=== PATIENT | male | born 1970 | race Caucasian/White ===

== ENCOUNTER 2018-02-21 19:55 | Inpatient (IN) | payer OTHER ==
[~2018-02-21] VITALS: Ht 190.5 cm; Wt 93.4 kg
[2018-02-21] MEDS ORDERED: HYDROCODONE/APAP 5MG-325MG TAB PO PRN (21:30)
[2018-02-21 21:40] VITALS: BP 116/85
[2018-02-21 22:14] LABS: ALANINE AMINOTRANSFERASE 32 IU/L (0-55); ALBUMIN 3.1 g/dL (3.5-5.0); ALBUMIN/GLOBULIN RATIO 1.2 (0.8-2.0); ALKALINE PHOSPHATASE 47 IU/L (40-150); ANION GAP 10.4 mmol/L (8-16); BLOOD UREA NITROGEN 10 mg/dL (7-26); BUN/CREATININE RATIO 13 (6-25); CALCIUM 7.6 mg/dL (8.4-10.2); CARBON DIOXIDE 19 mmol/L (22-29); CHLORIDE 115 mmol/L (98-107); CREATININE, SERUM 0.77 mg/dL (0.72-1.25); EST GLOMERULAR FILTRATION RATE > 60 ML/MIN (60-); GLUCOSE 90 mg/dL (74-118); POTASSIUM 3.4 mmol/L (3.5-5.1); SODIUM 141 mmol/L (136-145)
[2018-02-21] MEDS: CEFTRIAXONE SOD 1 GM VIAL IV SCH (22:14)
[2018-02-21] MEDS: SODIUM CHLORIDE 0.9% 1000ML 1,000 ML IV SCH (22:20)
[2018-02-21 22:38] VITALS: BP 116/85
[2018-02-21] MEDS ORDERED: POTASSIUM CHLORIDE 20 MEQ TAB CR PO SCH (22:45)
[2018-02-21 23:50] VITALS: BP 116/85
[2018-02-22] VITALS (8 sets, daily range): BP systolic 98–127; BP diastolic 63–80
--- NOTE | 2018-02-22 01:41 | Diagnostic Imaging Report ---
EXAM: CT Abdomen and Pelvis WITH contrast INDICATION: Evaluation for abdominal tumor COMPARISON: None. TECHNIQUE: Abdomen and pelvis were scanned utilizing a multidetector helical scanner from the lung base to the pubic symphysis after administration of IV contrast. Coronal and sagittal reformations were obtained. Routine protocol was performed. Scan was performed when during portal venous phase. IV CONTRAST: 100 mL of Isovue-370 ORAL CONTRAST: Water RADIATION DOSE: Total DLP: 462.68 mGy*cm Estimated effective dose: (DLP x 0.015 x size factor) mSv COMPLICATIONS: None FINDINGS: LINES and TUBES: None. LOWER THORAX: Trace of bilateral pleural effusions. Subtle circumferential thickening of the distal esophagus. HEPATOBILIARY: 1 cm hypodensity in series 2, image 28 involving the segment 6 of the liver. No biliary ductal dilation. GALLBLADDER: No radio-opaque stones or sludge. No wall thickening. SPLEEN: Mild splenomegaly. PANCREAS: No focal masses or ductal dilatation. ADRENALS: No adrenal nodules KIDNEYS/URETERS: Kidneys enhance symmetrically. No hydronephrosis. No cystic or solid mass lesions. No stones. GI TRACT: No abnormal distention, wall thickening, or evidence of bowel obstruction. There are post surgical changes of appendectomy. PELVIC ORGANS/BLADDER: Unremarkable. LYMPH NODES: No lymphadenopathy. VESSELS: Unremarkable. PERITONEUM / RETROPERITONEUM: No free air or fluid. BONES: Unremarkable. SOFT TISSUES: Unremarkable. IMPRESSION: 1. No evidence of acute intra-abdominal or pelvic abnormality. 2. Mild splenomegaly. 3. Trace of bilateral pleural effusions. 4. Indeterminate hypodensity in segment 6 of the liver. Follow-up with MRI of the liver in 6-12 weeks is recommended. 5. Circumferential thickening of the distal esophagus is nonspecific. Signed by: Dr. Onesimo Coelho M.D. on 02/22/2018 1:38 AM
[2018-02-22] MEDS ORDERED: IOPAMIDOL 370 MG/ML 200 ML INFUS..BTL INJ ONE (03:30)
[2018-02-22] MEDS ORDERED: SODIUM CHLORIDE 0.9% 50ML 50 ML ONE (03:30)
[2018-02-22 05:45] LABS: BASOPHILS % 0.5 % (0.0-1.0); EOSINOPHILS # (AUTO) 0.1 (0.0-0.4); EOSINOPHILS % 2.5 % (0.0-6.0); HEMATOCRIT 32.2 % (38.2-49.6); HEMOGLOBIN 11.5 g/dL (14.0-18.0); LYMPHOCYTES # (AUTO) 2.3 (1.0-3.2); LYMPHOCYTES % 59.4 % (18.0-39.1); MEAN CORPUSCULAR HEMOGLOBIN 30.2 pg (28-32); MEAN CORPUSCULAR HGB CONC 35.7 g/dL (31-35); MEAN CORPUSCULAR VOLUME 84.5 fL (81-99); MONOCYTES # (AUTO) 0.4 (0.2-0.8); MONOCYTES % 10.7 % (4.4-11.3); NEUTROPHILS # (AUTO) 1.1 (2.1-6.9); NEUTROPHILS % 26.9 % (38.7-80.0); PLATELET COUNT 217 x10e3/uL (140-360); RED BLOOD COUNT 3.81 x10e6/uL (4.3-5.7)
[2018-02-22 06:16] LABS: ALANINE AMINOTRANSFERASE 35 IU/L (0-55); ALBUMIN 3.2 g/dL (3.5-5.0); ALBUMIN/GLOBULIN RATIO 1.2 (0.8-2.0); ALKALINE PHOSPHATASE 50 IU/L (40-150); ANION GAP 9.8 mmol/L (8-16); BLOOD UREA NITROGEN 10 mg/dL (7-26); BUN/CREATININE RATIO 12 (6-25); CALCIUM 8.4 mg/dL (8.4-10.2); CARBON DIOXIDE 25 mmol/L (22-29); CHLORIDE 109 mmol/L (98-107); CREATININE, SERUM 0.84 mg/dL (0.72-1.25); EST GLOMERULAR FILTRATION RATE > 60 ML/MIN (60-); GLUCOSE 100 mg/dL (74-118); POTASSIUM 3.8 mmol/L (3.5-5.1); SODIUM 140 mmol/L (136-145)
[2018-02-22] MEDS: SODIUM CHLORIDE 0.9% 1000ML 1,000 ML IV SCH ×2 (08:28→18:23)
[2018-02-22] MEDS ORDERED: POTASSIUM CHLORIDE 20 MEQ TAB CR PO SCH ×2 (09:00)
--- NOTE | 2018-02-22 12:58 | History and Physical ---
This dictation is done on behalf of Dr. Kole Harkins of infectious disease. Mr. Foley is a pleasant, 47-year-old gentleman who has been known to infectious disease for quite some time. He has a 27-year history of HIV, and he claims he has never been on any HIV medication. He has a history of I and D of a buttock abscess about 4 years ago, which was treated with IV antibiotic through Dr. Kole Harkins's office. He reports that he has been having fever with a maximum of 103 for the past month off and on. He had some diarrhea, which has resolved. He had some dark urine as dark as coffee color, which has improved. He only peed maybe about 7 to 10 ounces twice a day. He states all these symptoms have improved. He came to the office of Dr. Kole Harkins for medical help, and now the patient is admitted to [facility] for evaluation and possible treatment. CT scan of the abdomen and pelvis was done showing no evidence of acute intra-abdominal or pelvic abnormality. He has mild splenomegaly with trace of bilateral pleural effusions. He also has indeterminate hypodensity in segment 6 of the liver. Follow up with MRI in about 6 to 12 weeks was recommended. He also has circumferential thickening of the distal esophagus, which was found nonspecific. His white count was 3.94, platelet count 217. Hemoglobin is 11.5. Sodium 140, potassium 3.8, chloride 109, carbon dioxide 25, BUN 10, creatinine 0.84. AST 20, ALT 35. Urine culture is pending. PAST MEDICAL HISTORY: Includes history of hepatitis A, hepatitis B, HIV, I and D of right buttock abscess. Otherwise, he denied any other medical issues including diabetes and/or hypertension. ALLERGIES: ALLERGIC TO DOXYCYCLINE. LABORATORIES AND RADIOLOGY STUDIES: As mentioned above. MEDICATIONS: The patient is on Rocephin 1 g q.24 h. He also received some potassium supplements for his low potassium yesterday. He had some IV fluids. REVIEW OF SYSTEMS: He claims that everything is starting to move back to normal, including his urination. The fever has improved. No nausea or vomiting. The diarrhea has resolved. No chest pain. No shortness of breath. PHYSICAL EXAMINATION GENERAL: Pleasant, alert and oriented times 3. In bed in supine position. VITAL SIGNS: Temperature 96.4, pulse 50, respirations 18, blood pressure 98/71. CV: S1 and S2. CHEST: Clear to auscultation bilaterally. Equal expansion. No acute distress. ABDOMEN: Soft. Nontender. No distention. Bowel sounds positive in 4 quadrants. HEENT: Moist. No pallor. No JVD. EXTREMITIES: Moves all extremities. In the buttock area, there is noted some rash with concern of herpetic lesions, which were treated through the office. ASSESSMENT AND PLAN: This is a pleasant, 47-year-old gentleman with past medical history as mentioned above with recent fever, diarrhea and possibly some dehydration. Workup so far has not yielded anything. His electrolytes were corrected including the potassium. CAT scan is nonspecific. No acute distress. Remains on Rocephin. This case was discussed with Dr. Harkins in detail. Will follow up with the patient, and most likely he will be discharged soon. Dictated by: CASPER Peng Job#: [id number]
[2018-02-22] MEDS ORDERED: POTASSIUM CHLORIDE 20 MEQ TAB CR PO ONE (19:30)
[2018-02-22] MEDS: CEFTRIAXONE SOD 1 GM VIAL IV SCH (21:10)
[2018-02-23 00:23] VITALS: BP 117/60
[2018-02-23 05:08] VITALS: BP 111/64
[2018-02-23] MEDS: SODIUM CHLORIDE 0.9% 1000ML 1,000 ML IV SCH (09:04)
--- NOTE | 2018-02-23 10:22 | History and Physical ---
REASON FOR CONSULTATION: Gross hematuria. HISTORY OF PRESENT ILLNESS: This patient who is a very pleasant 47-year-old, who has history of HIV for several years, but she is noncompliant. He thinks he is in good health. I have not seen him since 2013. He showed up to my office today complaining of fever and chills for 1 month, not feeling well for 1 month. He showed me a picture of his urine for the last few days, which is really bloody and he states he only urinates once a day, sometimes every other day. He does not feel well in general. The patient was sent to the lab to get a CBC, chemistry panel, but I am concerned about this hematuria. Patient comes to the hospital, where we can evaluate him, started on IV antibiotic until I get a better handle of his situation. The patient did agree reluctantly. PAST MEDICAL HISTORY: HIV for several years, but he is not on any medication. He has not followed up with me. He does see Dr. Patel as an outpatient. PAST SURGICAL HISTORY: Denies. ALLERGIES: NKA. SOCIAL HISTORY: There is no smoking, drug abuse, alcohol abuse. FAMILY HISTORY: Otherwise unremarkable. REVIEW OF SYSTEMS: HEENT: There is no headache, visual changes, hearing changes, but he said he has lost visual acuity in the last month or so. He does see an eye doctor and he is telling me that he needs to check his it was fine. PHYSICAL EXAMINATION HEENT: Not icteric. NECK: Supple. CHEST: Clear. HEART: S1 and S2. No murmur. ABDOMEN: Soft. Bowel sounds present. No tenderness, no hepatosplenomegaly. EXTREMITIES: No edema. SKIN: There is no rash at present time. IMPRESSIONS 1. Hematuria, fevers, and chills, concern about renal issues versus cancer versus tumor versus stone versus infection. Will get blood cultures, urine cultures. Put him on Rocephin. Recheck complete blood count. Recheck chemistry panel. 2. For hypokalemia, will replace. 3. Human immunodeficiency virus and acquired immunodeficiency syndrome. Discussed with the patient. He is agreeable to treatment, which will do this as an outpatient. 4. Will reassess in the morning. Job#: [id number] CQ
--- NOTE | 2018-02-23 11:12 | Discharge Summary ---
He is a 47-year-old gentleman with a history of HIV for approximately 26 years he claims. Seems to be noncompliant. Last time seen by Dr. Marroquin seems to be 2013. He came to the office recently complaining of fever and chills for about a month and not feeling well, diarrhea, cough, congestion, and some urinary discomfort, urgency, and decrease in amount of urine output. He was sent to [facility] for evaluation and possible treatment. He did not have any fever throughout the hospitalization. Urine culture was done, and showed negative 24 hours. His white count was 3.94 and platelets were 217,000. Sodium 140, potassium 3.8 and the creatinine level was 0.84. He had a CT of the abdomen and pelvis, which showed no evidence of acute intra-abdominal or pelvic abnormalities. Had mild splenomegaly. Had some trace bilateral pleural effusion. Some indeterminate hypodensity in segment 6 of the liver. Follow up with MRI was recommended in about 12 weeks with circumferential thickening of the distal esophagus, which was nonspecific per report. The patient was treated with Rocephin during the hospitalization. Was admitted on February 21, 2018, and he will be discharged home today, February 23, 2018. The hospital duration of hospitalization is 2 days. The patient seems to be in fair and stable condition. Ambulates well. No acute distress. Alert and oriented times 3. He is excited about going home. We will follow the IV line accesses, and send him home with Ceftin 500 mg p.o. b.i.d. for a total of 2 weeks. Discussed with the patient in detail that he needs to follow up with Dr. Marroquin in about 7-10 days, most likely within the next week. Again, the patient is being discharged fair and stable. Instructed to report to the ER if he is in need of acute medical attention. DICTATED BY CASPER DAVIS JOSE MARROQUIN MD Job#: [id number]
[2018-02-23] MEDS ORDERED: CEF (11:43)
[2018-02-23] MEDS ORDERED: CEFTIN PO (11:46)
[2018-02-23 11:57] VITALS: BP 110/78
[2018-02-23 12:00] VITALS: BP 110/78
== END 2018-02-23 12:15 | disposition home or self-care (01) | DRG 977 ==
LOC: MED/SURG3 20:26
PROVIDERS: ADMIT Internal Medicine Infectious Disease; ATTEND Internal Medicine Infectious Disease
DX: B20 Human immunodeficiency virus [HIV] disease (principal); R31.9 Hematuria, unspecified; D73.9 Disease of spleen, unspecified; M35.9 Systemic involvement of connective tissue, unspecified; E87.6 Hypokalemia; Z91.19 Patient's noncompliance with other medical treatment and regimen
CPT/HCPCS: 36415; 74177; 80053; 85025; 87086; 96361; J0696; J7030; Q9967

== ENCOUNTER 2018-11-05 18:20 | Inpatient (IN) | payer OTHER ==
[~2018-11-05] VITALS: Ht 190.5 cm; Wt 93.4 kg
[~2018-11-05 18:20] MED LIST: CEF; CEFTIN PO
--- OUTSIDE RECORDS SUMMARY | 2018-11-05 18:23 | XMS REPORT | Clinical Summary ---
Author Author [facility] Address Unknown Phone Unavailable Care Team Providers Care Network Systems Administrator Name Role Phone AnnetteDewey moreno PCP Allergies Comments Active Allergy Reactions Severity Noted Date Doxycycline Nausea And 02/17/2018 Vomiting Medications No known medications Active Problems Not on file Encounters Care Team Description Date Type Specialty Андрей Shane MD Fever of unknown origin (Primary Dx); Total bilirubin, elevated 02/17/2018 Emergency Emergency Medicine after 11/04/2017 Social History Date Tobacco Use Types Packs/Day Years Used Never Smoker Smokeless Tobacco: Never Used Alcohol Use Drinks/Week oz/Week Comments No Sex Assigned at Date Recorded Not on file Industry Job Start Date Occupation Not on file Not on file Not on file Travel End Travel History Travel Start No recent travel history available. Last Filed Vital Signs Time Taken Vital Sign Reading 02/17/2018 8:04 PM CDT Blood Pressure 111/87 02/17/2018 8:04 PM CDT Pulse 87 02/17/2018 8:04 PM CDT Temperature 37.4 C (99.3 F) 02/17/2018 8:04 PM CDT Respiratory Rate 18 02/17/2018 8:04 PM CDT Oxygen Saturation 98% - Inhaled Oxygen - Concentration 02/17/2018 2:45 PM CDT Weight 93.9 kg (207 lb) 02/17/2018 2:45 PM CDT Height 190.5 cm (6' 3") 02/17/2018 2:45 PM CDT Body Mass Index 25.87 Plan of Treatment Not on file Procedures Comments Procedure Name Priority Date/Time Associated Diagnosis BLOOD CULTURE STAT 02/17/2018 6:22 PM CDT BLOOD CULTURE STAT 02/17/2018 6:20 PM CDT US ABDOMEN LIMITED STAT 02/17/2018 5:59 PM CDT URINALYSIS W/ MICROSCOPIC STAT 02/17/2018 3:58 PM CDT LACTATE DEHYDROGENASE STAT 02/17/2018 (LDH) 3:57 PM CDT BILIRUBIN, INDIRECT STAT 02/17/2018 3:57 PM CDT LIPASE STAT 02/17/2018 3:57 PM CDT BASIC METABOLIC PANEL (7) STAT 02/17/2018 3:57 PM CDT HEPATIC FUNCTION PANEL STAT 02/17/2018 3:57 PM CDT (CELLAVISION MANUAL DIFF) Routine 02/17/2018 3:56 PM CDT CBC W/PLT COUNT & AUTO STAT 02/17/2018 DIFFERENTIAL 3:56 PM CDT PERIPHERAL BLOOD SMEAR - AP Routine 02/17/2018 PATHOLOGIST REVIEW 3:56 PM CDT CBC W/PLT COUNT & AUTO STAT 02/17/2018 DIFFERENTIAL 3:56 PM CDT after 11/04/2017 Results * Blood culture (02/17/2018 6:22 PM CDT) Only the most recent of 2 results within the time period is included. Result No growth in 5 days [facility] [place] Specimen Blood - Arm, Right Performing Organization Address City/State/Zipcode Phone Number [facility] [address] [place] [address] MED[facility]ENTER * US abdomen limited (02/17/2018 5:59 PM CDT) Narrative Performed At FINAL REPORT [employer] Right Upper Quadrant Ultrasound Clinical Diagnosis: Fever elevated bilirubin and right upper quadrant pain Comparison: No comparison Technique: Multiple transaxial and longitudinal images were obtained through the right upper quadrant with real time ultrasonography. Five mHz transducer was utilized.40 images were submitted for interpretation. Report: Liver: The liver measures 14.2 cm in the right midaxillary line. There are no focal masses.The echogenicity is within normal limits. Gallbladder: The transverse diameter is 2.8 cm.The wall measures two mm.There are no shadowing stones visualized. Biliary tree: There is no evidence of intra or extra hepatic biliary ductal dilatation. The common bile duct is not seen however there are no secondary signs of obstruction. Portal vein: The portal vein measures nine mm. Ascites: Negative Pleural Effusion: Negative Right kidney: The right kidney measures 11.1 cm. in length without evidence of hydronephrosis. Aorta and IVC: Midline abdominal structures and not well visualized. Impression: Unremarkable right upper quadrant ultrasound. Secondary to overlying bowel gas midline abdominal structures and mari hepatis are not well seen. Signed: Nav Cornell MD Report Verified Date/Time:02/17/2018 17:58:14 Reading Location: [address] Ultrasound Reading Room Procedure Note Interface, External Ris In - 02/17/2018 6:01 PM CDT FINAL REPORT Right Upper Quadrant Ultrasound Clinical Diagnosis: Fever elevated bilirubin and right upper quadrant pain Comparison: No comparison Technique: Multiple transaxial and longitudinal images were obtained through the right upper quadrant with real time ultrasonography. Five mHz transducer was utilized. 40 images were submitted for interpretation. Report: Liver: The liver measures 14.2 cm in the right midaxillary line. There are no focal masses. The echogenicity is within normal limits. Gallbladder: The transverse diameter is 2.8 cm. The wall measures two mm. There are no shadowing stones visualized. Biliary tree: There is no evidence of intra or extra hepatic biliary ductal dilatation. The common bile duct is not seen however there are no secondary signs of obstruction. Portal vein: The portal vein measures nine mm. Ascites: Negative Pleural Effusion: Negative Right kidney: The right kidney measures 11.1 cm. in length without evidence of hydronephrosis. Aorta and IVC: Midline abdominal structures and not well visualized. Impression: Unremarkable right upper quadrant ultrasound. Secondary to overlying bowel gas midline abdominal structures and mari hepatis are not well seen. Signed: Nav Cornell MD Report Verified Date/Time: 02/17/2018 17:58:14 Reading Location: [address] Ultrasound Reading Room Performing Organization Address [facility]/Zipcode Phone Number [facility] * Urinalysis w/Microscopic (02/17/2018 3:58 PM CDT) Color, UA [place] [facility] Clarity, UA Clear [facility] Specific [place], UA 1.025 1.001 - 1.035 [facility] pH, UA 5.5 5.0 - 8.0 [facility] Protein, UA 30 mg/dL (A) Negative [facility] Glucose, UA Negative Negative [facility] Ketones, UA Negative Negative [facility] Bilirubin, UA Positive (A) Negative [facility] Blood, UA Negative Negative [facility] Nitrite, UA Negative Negative [facility] Leukocytes, UA Negative Negative [facility] Urobilinogen, UA 4.0 (H) 0.2 - 1.0 mg/dL [facility] RBC, UA 0 /HPF [facility] WBC, UA 1 /HPF [facility] Mucus Few [facility] Crystals, Urine Rare [facility] Specimen Source Urine, Clean Catch [facility] Specimen Urine - Urine, Clean Catch Performing Organization Address [facility]/Zipcode Phone Number [facility] [address] [place] [address] MED[facility]ENTER * Bilirubin, indirect (02/17/2018 3:57 PM CDT) Bilirubin, Indirect 2.6 (H) 0.0 - 1.1 mg/dL [facility] Specimen Blood - Line, Venous Performing Organization Address City/[facility]/Zipcode [place] [address] [phone] * Lipase (02/17/2018 3:57 PM CDT) Lipase 204 (H) 8 - 78 U/L [facility] Specimen Blood - Line, Venous Narrative Performed At Specimen slightly icteric [facility] Performing Organization Address [facility] Phone Number [place] [phone] * LDH, Lactate dehydrogenase (02/17/2018 3:57 PM CDT) LDH 429 (H) 125 - 220 U/L [facility] Specimen Blood - Line, Venous Performing Organization Address [facility] Phone Number [place] [phone] [place] [address] * Hepatic function panel (02/17/2018 3:57 PM CDT) Protein, Total 6.9 6.0 - 8.3 gm/dL [facility] Albumin 3.8 3.5 - 5.0 g/dL [facility] Total Bilirubin 3.1 (H) 0.2 - 1.2 mg/dL [facility] Bilirubin, Direct 0.6 (H) 0.1 - 0.5 mg/dL [facility] Alkaline Phosphatase 50 40 - 150 U/L [facility] AST 18 5 - 34 U/L [facility] ALT 25 6 - 55 U/L [facility] Specimen Blood - Line, Venous Narrative Performed At Specimen slightly icteric [facility] Performing Organization Address [facility] Phone Number [place] [phone] [place] [address] * Basic metabolic panel (Na, K+, Cl, CO2, Glu, Ca, BUN, Cr) (02/17/2018 3:57 PM CDT) Sodium 137 136 - 145 meq/L [facility] Potassium 4.0 3.5 - 5.1 meq/L [facility] Chloride 106 98 - 107 meq/L [facility] CO2 21 (L) 22 - 29 meq/L [facility] BUN 15 7 - 21 mg/dL [facility] Creatinine 1.05 0.57 - 1.25 mg/dL [facility] Glucose 92 70 - 105 mg/dL [facility] Calcium 9.0 8.4 - 10.2 mg/dL [facility] EGFR 76Comment: ESTIMATED GFR IS mL/min/1.73 sq m [facility] NOT ACCURATE CREATININE [facility] CLEARANCE IN PREDICTING GLOMERULAR FILTRATION RATE. ESTIMATED GFR IS NOT APPLICABLE FOR DIALYSIS PATIENTS. Specimen Blood - Line, Venous Narrative Performed At Specimen slightly icteric [facility] Performing Organization Address City/[facility]/Zipcode Phone Number [facility] [address] [place] [address] [facility] * Peripheral Blood Smear - Path Review (02/17/2018 3:56 PM CDT) RBC Morphology Comment: Hypochromic, [facility] normocytic anemia with mild [facility] anisopoikilocytosis, including occasional elliptocytes and rare spherocytes. Increased polychromasia. No significant number of schistocytes. WBC Morphology Comment: Mild leukopenia. Few [facility] reactive lymphocytes. [facility] Platelet Morphology Comment: Normal in number and [facility] granular morphology. [facility] Increased large and rare giant forms present. Pathologist: Kiel Ramirez MD (electronic [facility] signature) [facility] Specimen Blood - Line, Venous Performing Organization Address City/[facility]/Zipcode Phone Number [facility] [address] [place] [address] MEDICAL [facility]ENTER * Manual Differential (02/17/2018 3:56 PM CDT) % Neutros 51 % [facility] % Lymphs 25 % [facility] % Monos 11 % [facility] % Eos 2 % [facility] % Baso 1 % [facility] % Bands 3 0 - 10 % [facility] % Atypical Lymphs 7 (H) 0 - 0 % [facility] # Neutros 1.53 (L) 1.78 - 5.38 K/ul [facility] # Lymphs 0.75 (L) 1.32 - 3.57 K/ul [facility] # Monos 0.33 0.30 - 0.82 K/uL [facility] # Eos 0.06 0.04 - 0.54 K/uL [facility] # Baso 0.03 0.01 - 0.08 K/uL [facility] # Bands 0.09 0.00 - 0.80 K/uL [facility] # Atypical Lymphs 0.21 (H) 0.00 - 0.00 K/uL [facility] Total Counted 100 [facility] nRBC (manual) 1 (H) 0 - 0 /100 WBC [facility] WBC Morphology Normal [facility] Giant Platelet Present [facility] Polychromasia 1+ few [facility] Anisocytosis 2+ moderate [facility] Microcytes 2+ moderate [facility] Poikilocytes 1+ few [facility] Elliptocytes 1+ few [facility] [place] Artifact Present [facility] Platelet Conc Adequate [facility] Specimen Blood - Line, Venous Narrative Performed At Received comment: [facility] User comments: [facility] Slide comments: Performing Organization Address City/State/Zipcode Phone Number [facility] [address] [place] [address] MEDICAL [facility]ENTER * CBC with platelet count + automated diff (02/17/2018 3:56 PM CDT) WBC 3.0 (L) 3.5 - 10.5 K/L [facility] RBC 4.50 (L) 4.63 - 6.08 M/L [facility] Hemoglobin 13.2 (L) 13.7 - 17.5 GM/DL [facility] Hematocrit 38.7 (L) 40.1 - 51.0 % [facility] MCV 86.0 79.0 - 92.2 fL [facility] MCH 29.3 25.7 - 32.2 pg [facility] MCHC 34.1 32.3 - 36.5 GM/DL [facility] RDW 13.7 11.6 - 14.4 % [facility] Platelets 174 150 - 450 K/CU MM [facility] MPV 10.0 9.4 - 12.4 fL [facility] nRBC 0 0 - 0 /100 WBC [facility] % Neutros 46 % [facility] % Lymphs 36 % [facility] % Monos 15 % [facility] % Eos 1 % [facility] % Baso 1 % [facility] # Neutros 1.41 (L) 1.78 - 5.38 K/L [facility] # Lymphs 1.09 (L) 1.32 - 3.57 K/L [facility] # Monos 0.45 0.30 - 0.82 K/L [facility] # Eos 0.03 (L) 0.04 - 0.54 K/L [facility] # Baso 0.02 0.01 - 0.08 K/L [facility] Immature 1 0 - 1 % [facility] Granulocytes-Relative [facility] Specimen Blood - Line, Venous Performing Organization Address City/State/Zipcode Phone Number [facility] [address] [place] [address] [facility] after 11/04/2017 Insurance Payer Benefit Subscriber ID Type Phone Address Plan / Group [employer] - MGD CARE HU[employer]NA xxxxxxxxx PPO [employer] PPO
[2018-11-05] MEDS ORDERED: SODIUM CHLORIDE 0.9% 1000ML 1,000 ML IV STA (18:42)
[2018-11-05] MEDS ORDERED: ONDANSETRON HCL INJ 2MG/ML 2ML 2 MG/ML VIAL IV STA (18:42)
[2018-11-05] MEDS ORDERED: MORPHINE SULFATE INJ 4 MG/ML INJ 1ML IV STA (18:42)
--- OUTSIDE RECORDS SUMMARY | 2018-11-05 19:19 | XMS REPORT | Clinical Summary ---
Author Author PREETI [facility] Address Unknown Phone Unavailable Care Team Providers Care Workforce Management Manager Name Role Phone AnnetteDewey moreno PCP Allergies [...] included. Result No growth in 5 days [facility] Specimen Blood - Arm, Right Performing Organization Address City/State/Zipcode Phone Number [facility] [address] [place] [address] MED[facility]ENTER * US abdomen limited (02/17/2018 5:59 PM CDT) Narrative Performed At FINAL REPORT Pops Right Upper Quadrant Ultrasound Clinical Diagnosis: Fever [...] MD Report Verified Date/Time:02/17/2018 17:58:14 Reading Location: [address] Ultrasound Reading Room Procedure Note Interface, [...] Report Verified Date/Time: 02/17/2018 17:58:14 Reading Location: [address] Ultrasound Reading Room Performing Organization Address [facility]/Zipcode Phone Number GE [facility] * Urinalysis w/Microscopic (02/17/2018 3:58 PM CDT) Color, UA [place] [facility] Clarity, UA Clear [facility] Specific Hatch, UA 1.025 1.001 - 1.035 [facility] pH, UA 5.5 5.0 - 8.0 [facility] Protein, UA 30 mg/dL (A) Negative [facility] Glucose, UA Negative Negative [facility] Ketones, UA Negative Negative [facility] Bilirubin, UA Positive (A) Negative [facility] Blood, UA Negative Negative [facility] Nitrite, UA Negative Negative [facility] Leukocytes, UA Negative Negative [facility] Urobilinogen, UA 4.0 (H) 0.2 - 1.0 mg/dL [facility] RBC, UA 0 /HPF [facility] WBC, UA 1 /HPF [facility] Mucus Few [facility] Crystals, Urine Rare [facility] Specimen Source Urine, Clean Catch [facility] Specimen Urine - Urine, Clean Catch Performing Organization Address [facility]/Zipcode Phone Number [facility] [address] [place] [address] [facility] * Bilirubin, indirect (02/17/2018 3:57 PM CDT) Bilirubin, Indirect 2.6 (H) 0.0 - 1.1 mg/dL [facility] Specimen Blood - Line, Venous Performing Organization Address City/[facility]/Zipcode Phone [place] [address] [phone] * Lipase (02/17/2018 3:57 PM CDT) Lipase 204 (H) 8 - 78 U/L [facility] Specimen Blood - Line, Venous Narrative Performed At Specimen slightly icteric [facility] Performing Organization Address [facility] [place] [phone] * LDH, Lactate dehydrogenase (02/17/2018 3:57 PM CDT) LDH 429 (H) 125 - 220 U/L [facility] Specimen Blood - Line, Venous Performing Organization Address [facility] Phone Number [place] [phone] [place] [address] * Hepatic function panel (02/17/2018 3:57 PM CDT) Protein, Total 6.9 6.0 - 8.3 gm/dL [facility] Albumin 3.8 3.5 - 5.0 g/dL [facility] Total Bilirubin 3.1 (H) 0.2 - 1.2 mg/dL [facility] Bilirubin, Direct 0.6 (H) 0.1 - 0.5 mg/dL [facility] Alkaline Phosphatase 50 40 - 150 U/L [facility] AST 18 5 - 34 U/L [facility] ALT 25 6 - 55 U/L [facility] Specimen Blood - Line, Venous Narrative Performed At Specimen slightly icteric [facility] Performing Organization Address [facility] Phone Number [place] [phone] [place] [address] * Basic metabolic panel (Na, K+, Cl, CO2, Glu, Ca, BUN, Cr) (02/17/2018 3:57 PM CDT) Sodium 137 136 - 145 meq/L [facility] Potassium 4.0 3.5 - 5.1 meq/L [facility] Chloride 106 98 - 107 meq/L [facility] CO2 21 (L) 22 - 29 meq/L [facility] BUN 15 7 - 21 mg/dL [facility] Creatinine 1.05 0.57 - 1.25 mg/dL [facility] Glucose 92 70 - 105 mg/dL [facility] Calcium 9.0 8.4 - 10.2 mg/dL [facility] EGFR 76Comment: ESTIMATED GFR IS mL/min/1.73 sq m [facility] NOT ACCURATE CREATININE [facility] CLEARANCE IN PREDICTING GLOMERULAR FILTRATION RATE. ESTIMATED GFR IS NOT APPLICABLE FOR DIALYSIS PATIENTS. Specimen Blood - Line, Venous Narrative Performed At Specimen slightly icteric [facility] Performing Organization Address City/[facility]/Zipcode Phone Number [facility] [address] [place] [address] [facility] * Peripheral Blood Smear - Path Review (02/17/2018 3:56 PM CDT) RBC Morphology Comment: Hypochromic, [facility] normocytic anemia with mild [facility] anisopoikilocytosis, including occasional elliptocytes and rare spherocytes. Increased polychromasia. No significant number of schistocytes. WBC Morphology Comment: Mild leukopenia. Few [facility] reactive lymphocytes. [facility] Platelet Morphology Comment: Normal in number and [facility] granular morphology. [facility] Increased large and rare giant forms present. Pathologist: Kiel Ramirez MD (electronic [facility] signature) [facility] Specimen Blood - Line, Venous Performing Organization Address City/[facility]/Zipcode Phone Number [facility] [address] [place] [address] MED[facility] * Manual Differential (02/17/2018 3:56 PM CDT) % Neutros 51 % [facility] % Lymphs 25 % [facility] % Monos 11 % [facility] % Eos 2 % [facility] % Baso 1 % [facility] % Bands 3 0 - 10 % [facility] % Atypical Lymphs 7 (H) 0 - 0 % [facility] # Neutros 1.53 (L) 1.78 - 5.38 K/ul [facility] # Lymphs 0.75 (L) 1.32 - 3.57 K/ul [facility] # Monos 0.33 0.30 - 0.82 K/uL [facility] # Eos 0.06 0.04 - 0.54 K/uL [facility] # Baso 0.03 0.01 - 0.08 K/uL [facility] # Bands 0.09 0.00 - 0.80 K/uL [facility] # Atypical Lymphs 0.21 (H) 0.00 - 0.00 K/uL [facility] Total Counted 100 [facility] nRBC (manual) 1 (H) 0 - 0 /100 WBC [facility] WBC Morphology Normal [facility] Giant Platelet Present [facility] Polychromasia 1+ few [facility] Anisocytosis 2+ moderate [facility] Microcytes 2+ moderate [facility] Poikilocytes 1+ few [facility] Elliptocytes 1+ few [facility] Artifact Present [facility] Platelet Conc Adequate [facility] Specimen Blood - Line, Venous Narrative Performed At Received comment: [facility] User comments: [facility] Slide comments: Performing Organization Address City/State/Zipcode Phone Number [facility] [address] [place] [address] [facility] * CBC with platelet count + automated diff (02/17/2018 3:56 PM CDT) WBC 3.0 (L) 3.5 - 10.5 K/L [facility] RBC 4.50 (L) 4.63 - 6.08 M/L [facility] Hemoglobin 13.2 (L) 13.7 - 17.5 GM/DL [facility] Hematocrit 38.7 (L) 40.1 - 51.0 % [facility] MCV 86.0 79.0 - 92.2 fL [facility] MCH 29.3 25.7 - 32.2 pg [facility] MCHC 34.1 32.3 - 36.5 GM/DL [facility] RDW 13.7 11.6 - 14.4 % [facility] Platelets 174 150 - 450 K/CU MM [facility] MPV 10.0 9.4 - 12.4 fL [facility] nRBC 0 0 - 0 /100 WBC [facility] % Neutros 46 % [facility] % Lymphs 36 % [facility] % Monos 15 % [facility] % Eos 1 % [facility] % Baso 1 % [facility] # Neutros 1.41 (L) 1.78 - 5.38 K/L [facility] # Lymphs 1.09 (L) 1.32 - 3.57 K/L [facility] # Monos 0.45 0.30 - 0.82 K/L [facility] # Eos 0.03 (L) 0.04 - 0.54 K/L [facility] # Baso 0.02 0.01 - 0.08 K/L [facility] Immature 1 0 - 1 % [facility] Granulocytes-Relative [facility] Specimen Blood - Line, Venous Performing Organization Address City/State/Zipcode Phone Number [facility] [address] [place] [address] [facility] after 11/04/2017 Insurance Payer Benefit Subscriber ID Type Phone Address Plan / Group [employer] - [employer] C[employer] xxxxxxxxx PPO [employer] PPO
[2018-11-05 19:30] LABS: BASOPHILS % 0.3 % (0.0-1.0); EOSINOPHILS % 0.4 % (0.0-6.0); HEMATOCRIT 44.2 % (38.2-49.6); HEMOGLOBIN 15.7 g/dL (14.0-18.0); LYMPHOCYTES # (AUTO) 1.7 (1.0-3.2); LYMPHOCYTES % 18.3 % (18.0-39.1); MEAN CORPUSCULAR HEMOGLOBIN 31.2 pg (28-32); MEAN CORPUSCULAR HGB CONC 35.5 g/dL (31-35); MEAN CORPUSCULAR VOLUME 87.7 fL (81-99); MONOCYTES # (AUTO) 0.8 (0.2-0.8); MONOCYTES % 9.2 % (4.4-11.3); NEUTROPHILS # (AUTO) 6.6 (2.1-6.9); NEUTROPHILS % 71.4 % (38.7-80.0); PLATELET COUNT 193 x10e3/uL (140-360); RED BLOOD COUNT 5.04 x10e6/uL (4.3-5.7); RED CELL DISTRIBUTION WIDTH 13.5 % (11.7-14.4)
[2018-11-05 19:47] LABS: ALANINE AMINOTRANSFERASE 39 IU/L (0-55); ALBUMIN 3.8 g/dL (3.5-5.0); ALBUMIN/GLOBULIN RATIO 0.9 (0.8-2.0); ALKALINE PHOSPHATASE 58 IU/L (40-150); ANION GAP 13.1 mmol/L (8-16); BLOOD UREA NITROGEN 16 mg/dL (7-26); BUN/CREATININE RATIO 13 (6-25); CALCIUM 9.8 mg/dL (8.4-10.2); CARBON DIOXIDE 25 mmol/L (22-29); CHLORIDE 103 mmol/L (98-107); CREATININE, SERUM 1.24 mg/dL (0.72-1.25); EST GLOMERULAR FILTRATION RATE > 60 ML/MIN (60-); GLUCOSE 100 mg/dL (74-118); POTASSIUM 4.1 mmol/L (3.5-5.1); SODIUM 137 mmol/L (136-145)
[2018-11-05] MEDS: PIPER-TAZ 3.375 GM 50 ML IV SCH (20:04)
[2018-11-05] MEDS ORDERED: SODIUM CHLORIDE 0.9% 50ML 50 ML ONE (20:30)
[2018-11-05] MEDS ORDERED: IOPAMIDOL 370 MG/ML 200 ML INFUS..BTL INJ ONE (20:30)
[2018-11-05 21:06] LABS: CLARITY,URINE HAZY (CLEAR); COLOR,URINE YELLOW (YELLOW)
[2018-11-05 21:07] LABS: BILIRUBIN,URINE 1+ (NEGATIVE); KETONES,URINE NEGATIVE (NEGATIVE); LEUKOCYTE ESTERASE ,URINE NEGATIVE (NEGATIVE); NITRITE,URINE NEGATIVE (NEGATIVE); PROTEIN,URINE DIPSTICK TRACE (NEGATIVE); URINE UROBILINOGEN 1 mg/dL (0.2 - 1)
--- NOTE | 2018-11-05 21:15 | Diagnostic Imaging Report ---
EXAM: CT Pelvis WITH contrast INDICATION: r/o perineal abscess COMPARISON: CT abdomen and pelvis 02/22/2018 TECHNIQUE: Pelvis were scanned utilizing a multidetector helical scanner from the iliac crest to the pubic symphysis after administration of IV contrast. Coronal and sagittal reformations were obtained. Routine protocol was performed. Scan was performed when during portal venous phase. IV CONTRAST: 100 mL of Isovue-370 ORAL CONTRAST: None COMPLICATIONS: None RADIATION DOSE: Total DLP: 293.9 mGy*cm Estimated effective dose: (DLP x 0.015 x size factor) mSv Dose modulation, iterative reconstruction, and/or weight based adjustment of the mA/kV was utilized to reduce the radiation dose to as low as reasonably achievable. FINDINGS: LINES and TUBES: None. GI TRACT: No abnormal distention, wall thickening, or evidence of bowel obstruction. There are post surgical changes of appendectomy. PELVIC ORGANS/BLADDER: Unremarkable. LYMPH NODES: No lymphadenopathy. Prominent left inguinal node, likely reactive. VESSELS: Unremarkable. PERITONEUM / RETROPERITONEUM: No free air or fluid. BONES: There are degenerative changes in the lumbar spine. SOFT TISSUES: Fat stranding in the left gluteal soft tissues without drainable fluid collection. No extension into the pelvis or adjacent bone or muscle. No subcutaneous emphysema. IMPRESSION: Left gluteal cellulitis without abscess. Signed by: DR. Darrick Sanford MD on 11/05/2018 9:12 PM
[2018-11-05 21:18] LABS: BACTERIA,URINE RARE /HPF; MUCUS,URINE MODERATE (RARE); RBC,URINE 0-5 /HPF (0-5); WBC,URINE (MAN) 0-5 /HPF (0-5)
[2018-11-05] MEDS: VANCOMYCIN 1GM/NS 250 ML 250 ML IV SCH (22:15)
[2018-11-05] MEDS: SODIUM CHLORIDE 0.9% 1000ML 1,000 ML IV SCH (22:33)
--- NOTE | 2018-11-05 23:07 | NUR ---
Dr. Beckwith returned call for consult and stated "Dr. Galvan spoke with me earlier, I will see the pt in the morning." Dr. Beckwith is updated on the status of the pt's complaint regarding the abcess increasing in size. Dr. Beckwith expresses his understanding and states "I will see the pt in morning."
--- NOTE | 2018-11-05 23:11 | NUR ---
Dr. Harkins's office is called for consult. Spoke with Sally from the answering service.
--- NOTE | 2018-11-05 23:11 | NUR ---
Walking rounds completed with Dedrick OH. Pt is in no acute distress at this time.
[2018-11-05] MEDS ORDERED: AMOXICILLIN250 MG PO (23:14)
[2018-11-05] MEDS ORDERED: AUGMENTIN 500-1 EACH PO (23:15)
[2018-11-05] MEDS ORDERED: BACTRIM DS TAB1 EACH PO (23:16)
[2018-11-06] MEDS: PIPER-TAZ 3.375 GM 50 ML IV SCH ×4 (02:05→19:10)
[2018-11-06 05:20] LABS: BASOPHILS % 0.3 % (0.0-1.0); EOSINOPHILS # (AUTO) 0.1 (0.0-0.4); EOSINOPHILS % 0.9 % (0.0-6.0); HEMATOCRIT 39.2 % (38.2-49.6); HEMOGLOBIN 13.3 g/dL (14.0-18.0); LYMPHOCYTES # (AUTO) 1.8 (1.0-3.2); LYMPHOCYTES % 22.8 % (18.0-39.1); MEAN CORPUSCULAR HEMOGLOBIN 30.2 pg (28-32); MEAN CORPUSCULAR HGB CONC 33.9 g/dL (31-35); MEAN CORPUSCULAR VOLUME 89.1 fL (81-99); MONOCYTES # (AUTO) 0.9 (0.2-0.8); MONOCYTES % 10.9 % (4.4-11.3); NEUTROPHILS # (AUTO) 5.1 (2.1-6.9); NEUTROPHILS % 64.7 % (38.7-80.0); PLATELET COUNT 159 x10e3/uL (140-360); RED CELL DISTRIBUTION WIDTH 13.4 % (11.7-14.4)
[2018-11-06 05:42] LABS: ALANINE AMINOTRANSFERASE 32 IU/L (0-55); ALBUMIN 3.1 g/dL (3.5-5.0); ALBUMIN/GLOBULIN RATIO 0.8 (0.8-2.0); ALKALINE PHOSPHATASE 46 IU/L (40-150); ANION GAP 10.7 mmol/L (8-16); BLOOD UREA NITROGEN 13 mg/dL (7-26); BUN/CREATININE RATIO 12 (6-25); CALCIUM 8.5 mg/dL (8.4-10.2); CARBON DIOXIDE 23 mmol/L (22-29); CHLORIDE 108 mmol/L (98-107); CREATININE, SERUM 1.11 mg/dL (0.72-1.25); EST GLOMERULAR FILTRATION RATE > 60 ML/MIN (60-); GLUCOSE 100 mg/dL (74-118); POTASSIUM 4.7 mmol/L (3.5-5.1); SODIUM 137 mmol/L (136-145)
--- NOTE | 2018-11-06 06:52 | NUR ---
WALKING ROUNDS WITH LUIS OH
--- NOTE | 2018-11-06 06:52 | NUR ---
RECEIVED REPORT FROM ALTHEA STEELE FOR CONTINUATION OF CARE. PT RESTING QUIETLY. NAD
[2018-11-06] MEDS: MORPHINE SULFATE INJ 4 MG/ML INJ 1ML IV PRN ×2 (08:00→19:10)
[2018-11-06] MEDS: ONDANSETRON HCL INJ 2MG/ML 2ML 2 MG/ML VIAL IV PRN ×2 (08:00→19:10)
[2018-11-06] MEDS: SODIUM CHLORIDE 0.9% 1000ML 1,000 ML IV SCH ×2 (08:15→19:08)
[2018-11-06] MEDS: VANCOMYCIN 1GM/NS 250 ML 250 ML IV SCH ×2 (10:05→20:35)
--- NOTE | 2018-11-06 11:30 | NUR ---
DR. PETTY AT BEDSIDE AT THIS TIME, REQUEST TO CANCEL PROCEDURE AND START ADA DIET.
--- NOTE | 2018-11-06 12:51 | Consultation ---
DATE OF CONSULTATION: 11/06/2018 CHIEF COMPLAINT: Perineal pain. HISTORY OF PRESENT ILLNESS: The patient is a 47-year-old male with 2-week history of perineal pain, slightly to the right side, which is increasing in intensity and spreading towards the base of the scrotum. He has subjective fever and chills. No nausea or vomiting. PAST MEDICAL HISTORY: Positive for hepatitis B, HIV positive, and recurrent right buttock abscess. PAST SURGICAL HISTORY: I and D of right buttock abscess. ALLERGIES: HE IS ALLERGIC TO DOXYCYCLINE. REVIEW OF SYSTEMS: No chest pain. No shortness of breath. PHYSICAL EXAMINATION: VITAL SIGNS: Stable. He is afebrile. GENERAL: The patient is awake, alert, in moderate discomfort. HEENT: Sclerae anicteric. NECK: Supple. LUNGS: Clear. HEART: Regular rate and rhythm. ABDOMEN: Soft, nontender. : area revealed the area of induration and redness just to the right of the perianal area with no fluctuance. There is tenderness to deep palpation. LABORATORY DATA: White cell count is 7.8, hemoglobin of 13, and creatinine of 1.1. IMAGING: CT of the pelvis show gluteal soft tissue swelling suggestive of cellulitis. No abscess. ASSESSMENT: IV antibiotic initiated. The patient will probably need I and D of perineal abscess under anesthesia. Marv Beckwith MD DNDawson/MODL /[id number]
--- NOTE | 2018-11-06 14:56 | Diagnostic Imaging Report ---
EXAMINATION: CHEST 2 VIEWS INDICATION: Shortness of breath. COMPARISON: None FINDINGS: TUBES and LINES: None. LUNGS: Lungs are well inflated. Lungs are clear. There is no evidence of pneumonia or pulmonary edema. PLEURA: No pleural effusion or pneumothorax. HEART AND MEDIASTINUM: The cardiomediastinal silhouette is unremarkable. BONES AND SOFT TISSUES: No acute osseous lesion. Soft tissues are unremarkable. UPPER ABDOMEN: No free air under the diaphragm. IMPRESSION: No acute radiographic abnormality. Signed by: Dr. Glenys Lubin MD on 11/06/2018 2:52 PM
[2018-11-06 16:05] VITALS: BP 99/60
--- NOTE | 2018-11-06 16:30 | NUR ---
Patient is a 47 y.o male received patient from ER, a/ox3, arrived unit via W/C and ambulatory, no resp disress, VSS and c/o mild pain 3/10 to buttock/groin area due to abscess, area firm and tender but not open, rest of skin intact. Oriented to room, call light within reach, IV line in place and fluids running as ordered. Will monitor
--- NOTE | 2018-11-06 17:49 | Consultation ---
DATE OF CONSULTATION: REASON FOR CONSULTATION: Anal abscess and HIV. Thank you so much for asking me to see this patient. HISTORY OF PRESENT ILLNESS: He is a 47-year-old white male, very pleasant, but he is noncompliant, he said he is too busy at work, I have not seen him in several months and he is not taking his anti-retroviral medication. The patient does have HIV, but he is noncompliant. He is coming with perianal pain, redness and swelling started for more than couple of weeks. He took some Bactrim and he took some amoxicillin without any improvement, getting progressively worse. He had this 5 years ago on and he had an I and D, but he is telling me since then every few months he does get a flare up with the pain. No drainage. The patient comes in because of the pain as mentioned above. Discussed the case with the ER physician. The patient was seen and examined. I also discussed the case with Dr. Beckwith, Surgery and with the patient. PAST MEDICAL HISTORY: Significant for HIV, but he is not taking any treatment. PAST SURGICAL HISTORY: I and D of perianal abscess. ALLERGIES: DOXYCYCLINE. SOCIAL HISTORY: There is no smoking, drug abuse, or alcohol. FAMILY HISTORY: Noncontributory. REVIEW OF SYSTEMS: GENERAL: He is feeling fair. He is having little chills. HEENT: There is no headache, visual changes, or hearing changes. GI: There is no nausea, no vomiting, no diarrhea. CARDIAC: There is no arrhythmia. SKIN: There is no other rash. JOINT: No erythema or edema. NEURO: No local findings. LABORATORY DATA: Reviewed. CAT scan showed there was no abscess. Reviewed x-rays and imaging. White count is , hemoglobin 15. His sodium is 137, potassium 4.7, creatinine 1.11. PHYSICAL EXAMINATION: GENERAL: He is currently alert, oriented, does not seem to be in acute distress. VITAL SIGNS: Stable, currently afebrile. HEENT: Not icteric. NECK: Supple. CHEST: Clear bilateral. HEART: S1, S2. No S3, S4, or murmur. ABDOMEN: Soft. Bowel sounds present. No tenderness. No hepatosplenomegaly. EXTREMITIES: No edema. SKIN: There is no rash. He does have induration and tenderness in the perianal area. There is no drainage. No fluctuation at the present time. IMPRESSION: 1. Perianal abscess . Discussed with Dr. Beckwith. He is going to do I and D, send for culture and sensitivity, AFB and fungal. 2. HIV, noncompliance. Discussed with the patient at length. I do not know what his CD4 cell count is at the present time. 3. There is no point of getting viral load or starting antiretroviral medications since he is not going to follow up. I had long discussion with him that he has to take his anti-retroviral medication, he would need to see me so we can get genotyping followup. His life expectancy is 10 to 15 years if he does not take his anti-retroviral medication, he fully understood. Again, he tells me he is too busy at work and he cannot take a day off. Even at home, I can see him once every six months do the blood test. 4. In the meantime, we will put him on vancomycin and Zosyn to obtain sedimentation rate and CD4 cell count. 5. We will follow. MD JEANNIE Araya/JULIO /[id number]
--- NOTE | 2018-11-06 18:36 | NUR ---
Patient alert and stable, denies any distress at this time and will monitor
[2018-11-06 19:42] VITALS: BP 99/60
--- NOTE | 2018-11-06 19:42 | NUR ---
PT IS RESTING IN THE BED. RESPIRATION IS EVEN AND UNLABORED, NO DISTRESS NOTED. BED IN THE LOWEST POSITION, LOCKED, AND CALL LIGHT WITHIN REACH. WILL CONTINUE TO MONITOR.
[2018-11-06 20:00] VITALS: BP 107/68
[2018-11-07] VITALS (8 sets, daily range): BP systolic 86–111; BP diastolic 49–76
[2018-11-07] MEDS: SODIUM CHLORIDE 0.9% 1000ML 1,000 ML IV SCH ×4 (00:38→11:08)
[2018-11-07] MEDS: PIPER-TAZ 3.375 GM 50 ML IV SCH ×4 (00:38→19:39)
[2018-11-07] MEDS: MORPHINE SULFATE INJ 4 MG/ML INJ 1ML IV PRN ×3 (00:40→22:50)
[2018-11-07] MEDS: ONDANSETRON HCL INJ 2MG/ML 2ML 2 MG/ML VIAL IV PRN ×3 (00:40→22:50)
--- NOTE | 2018-11-07 02:10 | History and Physical ---
A 47-year-old male comes with a perianal abscess, rectal pain, and swelling. HISTORY OF PRESENTING ILLNESS: Mr. Foley with a history of HIV, not on antiretroviral medication, was in his usual state of health until about couple of days ago the patient started to have pain and was taking some sulfamethoxazole and amoxicillin without any improvement. The patient's pain and tenderness got progressively worse and the patient came to the emergency room, was admitted for a perianal abscess. PAST MEDICAL HISTORY: History of perianal abscess in the past five years ago, was treated with six weeks of IV antibiotic. History HIV, no treatment. PAST SURGICAL HISTORY: History of I and D as mentioned above. ALLERGIES: ALLERGIC TO DOXYCYCLINE. SOCIAL HISTORY: No EtOH. No IV drug abuse. Works with [employer]. He is very busy in his career. FAMILY HISTORY: Noncontributory. REVIEW OF SYSTEMS: Negative for chest pain. No shortness of breath. No nausea, vomiting, or diarrhea. No constipation. No rectal bleeding. No fever and chills. No blurry vision. No diplopia. No headaches. PHYSICAL EXAMINATION: GENERAL: The patient is alert and oriented x3, in no acute distress as long as he is lying on his side. CVS: S1, S2 normal. Regular rate and rhythm. ABDOMEN: Nontender, nondistended. EXTREMITIES: No clubbing, no cyanosis, no edema. GENITOURINARY: Perineal area, positive for abscess that is indurated and also tender to palpate, extends quite into the buttock area. LABORATORY VALUES: The patient's white count is 9.18, hemoglobin is 15.7, hematocrit 44.8. Chemistries, sodium of 137, potassium 4.1, BUN 16, creatinine 1.24, total bilirubin of 1.7 with a later one of 2.1. IMMUNOLOGY: CD3-CD4 ratio and the absolute CD4 count is pending. Urine was essentially negative except for moderate mucus. MICROBIOLOGY: Urine culture and blood culture pending. ASSESSMENT: Perianal abscess in an HIV positive patient. PLAN: 1. Consult with Dr. Marv Beckwith has been done. A consult for possible incision and drainage has been ordered. 2. HIV. CD4 count has been ordered. 3. Recurrent perianal abscess. Probably needs I and D and continuous antibiotic and we will follow the patient along with the consultants. MD SHEREE Park/MODL /[id number]
--- NOTE | 2018-11-07 07:20 | NUR ---
pt asleep resp even and unlabored at this time no distress noted, pt able to make need known, call light in reach.
[2018-11-07] MEDS: VANCOMYCIN 1GM/NS 250 ML 250 ML IV SCH ×2 (10:16→20:26)
--- NOTE | 2018-11-07 10:17 | Progress Note ---
DATE: SUBJECTIVE: The patient is here for cellulitis and perianal abscess. Currently in pain on movement and also tenderness present on palpation, otherwise, pain free. OBJECTIVE: VITAL SIGNS: Temperature 97.1, afebrile for the last 24 hours, pulse of 60, respirations of 18, blood pressure is 86/49, and pulse oximetry of 97%. HEENT: Normocephalic and atraumatic. Pupils are reactive to light and accommodation. CVS: S1 and S2 normal. Regular rate and rhythm. ABDOMEN: Nontender and nondistended. SKIN: Examination of the perianal area, right-sided abscess on the perianal area with fluctuation and pulse oximeter is 97%. IMAGING STUDIES: Pelvic CT done on admission shows left gluteal cellulitis without abscesses as per CT. ASSESSMENT: Perianal cellulitis and the patient has induration, possible abscess per examination. PLAN: Plan is to continue with antibiotics. The patient is currently on morphine sulfate for pain, Zosyn and vancomycin, which have been running. Discussed the case with Dr. Beckwith and the plan would be to continue with antibiotics and have the abscess form a little bit better, so I and D can be more localized. The plan is to continue with antibiotics and further recommendation per clinical course, and Dr. Harkins is following the patient. The patient's vancomycin trough has not been done yet. Also, the patient's C3 and C4 counts are depending. MD SHEREE Park/SUNILL /[id number]
--- NOTE | 2018-11-07 11:20 | NUR ---
pt amb in [place]
--- NOTE | 2018-11-07 16:32 | NUR ---
Nutrition Screen Note RD Recommendation for Physician: -Continue current diet as ordered. Plan of Care: RD following, monitoring for tolerance and adequacy Nutrition reason for involvement: Nutrition Risk Trigger-MST Primary Diagnose(s): HIV Disease, Perianal abscess PMH: History of perianal abscess in the past five years ago, was treated with six weeks of IV antibiotic, HIV, no treatment. Ht: 75 in Wt: 206 lb BMI: 25.7 kg/m2 IBW: [address] Assessment: 11/07: 47 YOM admitted for HIV, perianal abscess. Pt was seen d/t MST score. Pt denied reports of a poor appetite as well as any unintentional weight loss. Pt was seen eating his lunch and is completing 75-100% of his meals per EMR. Pt denied N/V, or any chewing or swallowing issues. Lbm 11/06. Pt had no other questions or concerns. Chart reviewed. Labs and meds reviewed. Will continue to monitor. Current Diet: Regular Malnutrition Evaluation (11/07) The patient does not meet criteria for a specified degree of malnutrition at this time. Will re-evaluate at follow-up as appropriate. Diet Education Needs Assessment: Diet education not indicated. Nutrition Care Level: Low Signed: Lynda Martinez, MS, RD, LD
--- NOTE | 2018-11-07 19:25 | NUR ---
report given to oncoming nurse for continued care
[2018-11-08] MEDS: PIPER-TAZ 3.375 GM 50 ML IV SCH ×4 (01:00→19:40)
[2018-11-08] MEDS ORDERED: IOPAMIDOL 370 MG/ML 200 ML INFUS..BTL INJ ONE (06:13)
[2018-11-08] MEDS ORDERED: SODIUM CHLORIDE 0.9% 50ML 50 ML ONE (06:13)
[2018-11-08] MEDS: SODIUM CHLORIDE 0.9% 1000ML 1,000 ML IV SCH ×3 (06:18→19:08)
--- NOTE | 2018-11-08 07:31 | Progress Note ---
DATE: SUBJECTIVE: The patient is here for perirectal abscess. The patient is currently feeling better. The pain has subsided. The patient's induration and ability to sit also has been better. The patient has been for a CT scan today to delineate an abscess. Currently pain free unless he sits down. OBJECTIVE: VITAL SIGNS: Temperature is 98.6, pulse of 60, respirations of 20, blood pressure is 104/61. HEENT: Normocephalic, atraumatic. Pupils are reactive to light and accommodation. CVS: S1 and S2 are normal. Regular rate and rhythm. ABDOMEN: Nontender, nondistended. PERINEUM: The patient's abscess which is anteriorly to the buttock area has receded down and also the area posteriorly has receded more collection in the central area. Induration is still present. LABORATORY VALUES: White count has always been normal, hemoglobin of 12.9 and hematocrit of 38. The patient's vancomycin trough is 7.8. Immunology, CD4 count is 533 and C3-C4 ratio is 33.3. IMAGING STUDIES: Pending pelvic CT, to see delineate for abscess. ASSESSMENT: Perianal cellulitis and possible abscess. PLAN: Plan is to follow up with a CT of the pelvis to see if I and D is required at this rate. Continue with vancomycin and Zosyn. We will continue to monitor the patient along with consultants. Possible I and D if needed. If not, the patient can be sent home on PICC line and Zosyn and vancomycin. Further recommendation per clinical course. We will continue to monitor the patient along with consultants. MD SHEREE Park/MODL /[id number]
--- NOTE | 2018-11-08 07:41 | Diagnostic Imaging Report ---
EXAM: CT Pelvis WITH contrast INDICATION: Peritoneal infection. COMPARISON: CT abdomen and pelvis 11/05/2018. TECHNIQUE: Pelvis were scanned utilizing a multidetector helical scanner from the iliac crest to the pubic symphysis after administration of IV contrast. Coronal and sagittal reformations were obtained. Routine protocol was performed. Scan was performed when during portal venous phase. IV CONTRAST: 100 mL of Isovue-370 ORAL CONTRAST: None COMPLICATIONS: None RADIATION DOSE: Total DLP: 340.3 mGy*cm Estimated effective dose: (DLP x 0.015 x size factor) mSv Dose modulation, iterative reconstruction, and/or weight based adjustment of the mA/kV was utilized to reduce the radiation dose to as low as reasonably achievable. FINDINGS: LINES and TUBES: None. GI TRACT: Partially visualized. No abnormal distention, wall thickening, or evidence of bowel obstruction. There are post surgical changes of appendectomy. PELVIC ORGANS/BLADDER: The bladder is mildly thick-walled and partially decompressed. LYMPH NODES: No lymphadenopathy. VESSELS: Unremarkable. PERITONEUM / RETROPERITONEUM: No free air or fluid. BONES/SOFT TISSUES: Similar appearance of fat stranding in the left gluteal soft tissues without drainable fluid collection. No extension into the pelvis or adjacent bone or muscle. No subcutaneous emphysema. No acute osseous abnormality. IMPRESSION: Similar appearance of left gluteal cellulitis without abscess. Signed by: Dr. Glenys Lubin MD on 11/08/2018 7:37 AM
[2018-11-08 07:59] VITALS: BP 97/54
[2018-11-08] MEDS: VANCOMYCIN 1GM/NS 250 ML 250 ML IV SCH ×2 (09:34→19:30)
[2018-11-08 12:00] VITALS: BP 138/80
[2018-11-08 16:13] VITALS: BP 109/59
--- NOTE | 2018-11-08 17:40 | Diagnostic Imaging Report ---
Exam: Ultrasound extremity Limited nonvascular History: Perianal abscess. HIV. Findings: Transverse and sagittal ultrasonographic imaging was obtained of the left inguinal area and left groin and right groin with grayscale and color Doppler imaging. Imaging was obtained during Valsalva and at rest. No abnormal fluid collection or mass is seen at the palpable site. No herniation is seen. Nonspecific lymph nodes are seen in the right and left groin regions. There is a 3.3 x 0.9 x 1.6 cm left groin lymph node. Impression: No abnormal fluid collection or mass is seen at the palpable site. Nonspecific lymph nodes are seen in the right and left groin regions. There is a 3.3 x 0.9 x 1.6 cm left groin lymph node. Signed by: Dr. Trever Freedman M.D. on 11/08/2018 5:36 PM
--- NOTE | 2018-11-08 19:21 | Diagnostic Imaging Report ---
EXAMINATION: CHEST XRAY LINE PLACEMENT INDICATION: Line placement ^PICC LINE PLACEMENT ^[id number] ^1900 ^Y COMPARISON: November 06, 2018 FINDINGS: TUBES and LINES: Right peripherally inserted central venous catheter with distal tip over the low superior vena cava.. LUNGS: Lungs are well inflated. Lungs are clear. There is no evidence of pneumonia or pulmonary edema. PLEURA: No pleural effusion or pneumothorax. HEART AND MEDIASTINUM: The cardiomediastinal silhouette is unremarkable. BONES AND SOFT TISSUES: No acute osseous lesion. Soft tissues are unremarkable. UPPER ABDOMEN: No free air under the diaphragm. IMPRESSION: Right peripherally inserted central venous catheter with distal tip over the low superior vena cava. Signed by: Dr. Trever Freedman M.D. on 11/08/2018 7:18 PM
--- NOTE | 2018-11-08 19:47 | NUR ---
Received report from charge nurse.
[2018-11-08 20:00] VITALS: BP 112/65
[2018-11-08] MEDS: ONDANSETRON HCL INJ 2MG/ML 2ML 2 MG/ML VIAL IV PRN (21:19)
[2018-11-08] MEDS: MORPHINE SULFATE INJ 4 MG/ML INJ 1ML IV PRN (21:19)
--- NOTE | 2018-11-08 22:07 | NUR ---
Patient c/o pain =5-6. Pain and nausea meds given as ordered by . Patent in bed.
[2018-11-09] VITALS: BP 106/72
[2018-11-09] MEDS: PIPER-TAZ 3.375 GM 50 ML IV SCH ×2 (01:00→08:01)
[2018-11-09] MEDS: SODIUM CHLORIDE 0.9% 1000ML 1,000 ML IV SCH (03:08)
[2018-11-09 04:00] VITALS: BP 103/57
[2018-11-09 07:30] VITALS: BP 103/57
[2018-11-09 07:48] VITALS: BP 110/62
--- NOTE | 2018-11-09 09:43 | Progress Note ---
DATE: SUBJECTIVE: The patient is here for an acute abscess of the perianal area. Currently, the pain has decreased in intensity. The patient is feeling better. A CT scan was done yesterday, which did not reveal any abscesses in the pelvic area. The patient has been afebrile too. OBJECTIVE: VITAL SIGNS: Temperature is 96.9, afebrile for the last 48 hours, pulse 51, respirations of 18, and blood pressure is 103/57. HEENT: Normocephalic, atraumatic. Pupils react to light and accommodation. CVS: S1 and S2 normal. Regular rate and rhythm. ABDOMEN: Nontender. Nondistended. SKIN: Pelvic area, perianal area, induration has decreased. The swelling has come down in the perianal area. LABORATORY VALUES: None has been done. Chemistries have been stable. The patient's immunology, CD count 33.53 and absolute CD4 count is 533. Toxicology, vancomycin 7.8. ASSESSMENT AND PLAN: 1. Cellulitis and perianal abscess. The patient is pending an ultrasound read. The ultrasound was done yesterday to delineate any abscess. 2. The patient continues to be on vancomycin and Zosyn. 3. Human immunodeficiency virus. The patient is reluctant to treatment at this time. The patient can be discharged today on IV antibiotics. PICC line was inserted yesterday. The patient to be followed up with Dr. Harkins as an outpatient. Further recommendation per clinical course. MD SHEREE Park/MODL /[id number]
--- NOTE | 2018-11-09 11:07 | NUR ---
pt discharged home ,picc line flushed with 10 cc ns each port ,pt instructed to go to dr mello office after discharge for iv antibiotics,acknowleged understanding,ambulaTED TO AUTO
== END 2018-11-09 11:07 | disposition home or self-care (01) | DRG 603 ==
LOC: ER 18:20 → ERHOLD 19:16 → MED/SURG3 11-06 16:00
PROVIDERS: ADMIT Family Medicine; ATTEND Family Medicine
PROC: 02HV33Z Insertion of Infusion Device into Superior Vena Cava, Percutaneous Approach (ICD-10-PCS; principal; 2018-11-08)
PROC: B548ZZA Ultrasonography of Superior Vena Cava, Guidance (ICD-10-PCS; 2018-11-08)
DX: L03.315 Cellulitis of perineum (principal); L03.317 Cellulitis of buttock; B20 Human immunodeficiency virus [HIV] disease; Z88.8 Allergy status to other drugs, medicaments and biological substances; Z91.19 Patient's noncompliance with other medical treatment and regimen; Z86.19 Personal history of other infectious and parasitic diseases
CPT/HCPCS: 36415; 36569; 71045; 71046; 72193; 76882; 80053; 80202; 81001; 83605; 85025; 86361; 87040; 87086; 99284; J2270; J2405; J2543; J3370; J7030; Q9967

== ENCOUNTER 2018-12-26 14:57 | Observation (INO) | payer OTHER ==
[~2018-12-26] VITALS: Ht 190.5 cm; Wt 94.5 kg
[~2018-12-26 14:57] MED LIST changes: +AMOXICILLIN250 MG PO; +AUGMENTIN 500-1 EACH PO; +BACTRIM DS TAB1 EACH PO
--- OUTSIDE RECORDS SUMMARY | 2018-12-26 15:46 | XMS REPORT | Clinical Summary ---
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 Name Role Phone AnnetteDewey moreno PCP Allergies Comments Active Allergy Reactions Severity Noted Date Doxycycline Nausea And 02/17/2018 Vomiting Medications No known medications Active Problems Not on file Encounters Care Team Description Date Type Specialty Андрей Shane MD Fever of unknown origin (Primary Dx); Total bilirubin, elevated 02/17/2018 Emergency Emergency Medicine after 12/25/2017 Social History Date Tobacco Use Types Packs/Day [...] STAT 02/17/2018 DIFFERENTIAL 3:56 PM CDT after 12/25/2017 Results * Blood culture (02/17/2018 6:22 PM CDT) Only the most recent of 2 results within the time period is included. Result No growth in [address] [facility] [place] Specimen Blood Performing Organization Address City/State/Zipcode Phone Number [facility] [address] [place] [address] [facility] * US abdomen limited (02/17/2018 5:59 PM CDT) Specimen Narrative Performed At FINAL REPORT Simmr Right Upper Quadrant Ultrasound Clinical Diagnosis: Fever [...] MD Report Verified Date/Time:02/17/2018 17:58:14 Reading Location: [address] Ultrasound Reading Room Procedure Note Interface, [...] Report Verified Date/Time: 02/17/2018 17:58:14 Reading Location: [address] Ultrasound Reading Room Performing Organization Address [facility] Phone Number [facility] * Urinalysis w/Microscopic (02/17/2018 3:58 PM CDT) Color, UA Bracken [facility] Clarity, UA Clear [facility] Specific Joffre, UA 1.025 1.001 - 1.035 [facility] pH, UA 5.5 5.0 - 8.0 [facility] Protein, UA 30 mg/dL (A) Negative [facility] Glucose, UA Negative Negative [facility] Ketones, UA Negative Negative [facility] Bilirubin, UA Positive (A) Negative [facility] Blood, UA Negative Negative [facility] Nitrite, UA Negative Negative [facility] Leukocytes, UA Negative Negative [facility] Urobilinogen, UA 4.0 (H) 0.2 - 1.0 mg/dL [facility] RBC, UA 0 /HPF [facility] WBC, UA 1 /HPF [facility] Mucus Few [facility] Crystals, Urine Rare [facility] Specimen Source Urine, Clean Catch [facility] Specimen Urine Performing Organization Address [facility] Phone Number [facility] [address] [place] [address] [facility] [place] * Bilirubin, indirect (02/17/2018 3:57 PM CDT) Bilirubin, Indirect 2.6 (H) 0.0 - 1.1 mg/dL [facility] Specimen Blood Performing Organization Address City/[facility] Phone Number [facility] [address] [place], [address] * Lipase (02/17/2018 3:57 PM CDT) Lipase 204 (H) 8 - 78 U/L [facility] Specimen Blood Narrative Performed At Specimen slightly icteric [facility] Performing Organization Address City/[facility] Phone Number [address] * LDH, Lactate dehydrogenase (02/17/2018 3:57 PM CDT) LDH 429 (H) 125 - 220 U/L [facility] Specimen Blood Performing Organization Address [facility] Phone Number [address] * Hepatic function panel (02/17/2018 3:57 PM CDT) Protein, Total 6.9 6.0 - 8.3 gm/dL [facility] Albumin 3.8 3.5 - 5.0 g/dL [facility] Total Bilirubin 3.1 (H) 0.2 - 1.2 mg/dL [facility] Bilirubin, Direct 0.6 (H) 0.1 - 0.5 mg/dL [facility] Alkaline Phosphatase 50 40 - 150 U/L [facility] AST 18 5 - 34 U/L [facility] ALT 25 6 - 55 U/L [facility] Specimen Blood Narrative Performed At Specimen slightly icteric [facility] Performing Organization Address [facility] Phone Number [address] * Basic metabolic panel (Na, K+, Cl, CO2, Glu, Ca, BUN, Cr) (02/17/2018 3:57 PM CDT) Sodium 137 136 - 145 meq/L [facility] Potassium 4.0 3.5 - 5.1 meq/L [facility] Chloride 106 98 - 107 meq/L [facility] CO2 21 (L) 22 - 29 meq/L [facility] BUN 15 7 - 21 mg/dL [facility] Creatinine 1.05 0.57 - 1.25 mg/dL [facility] Glucose 92 70 - 105 mg/dL [facility] Calcium 9.0 8.4 - 10.2 mg/dL [facility] EGFR 76Comment: ESTIMATED GFR IS mL/min/1.73 sq m NOT ACCURATE CREATININE [facility] CLEARANCE IN PREDICTING GLOMERULAR FILTRATION RATE. ESTIMATED GFR IS NOT APPLICABLE FOR DIALYSIS PATIENTS. Specimen Blood Narrative Performed At Specimen slightly icteric [facility] Performing Organization Address City/[facility] Cent[facility]ode Phone Number [facility] [address] [place] [address] [facility] * Peripheral Blood Smear - Path Review (02/17/2018 3:56 PM CDT) RBC Morphology Comment: Hypochromic, normocytic anemia with mild [facility] anisopoikilocytosis, including occasional elliptocytes and rare spherocytes. Increased polychromasia. No significant number of schistocytes. WBC Morphology Comment: Mild leukopenia. Few reactive lymphocytes. [facility] Platelet Morphology Comment: Normal in number and granular morphology. [facility] Increased large and rare giant forms present. Pathologist: Kiel Ramirez MD (electronic signature) [facility] Specimen Blood Performing Organization Address City/[facility]/Zipcode Phone Number [facility] [address] [place] [address] [facility] * Manual Differential (02/17/2018 3:56 PM CDT) % Neutros 51 % [facility] % Lymphs 25 % [facility] [place] % Monos 11 % [facility] % Eos 2 % [facility] % Baso 1 % [facility] % Bands 3 0 - 10 % [facility] % Atypical Lymphs 7 (H) 0 - 0 % [facility] # Neutros 1.53 (L) 1.78 - 5.38 K/ul [facility] # Lymphs 0.75 (L) 1.32 - 3.57 K/ul [facility] # Monos 0.33 0.30 - 0.82 K/uL [facility] # Eos 0.06 0.04 - 0.54 K/uL [facility] # Baso 0.03 0.01 - 0.08 K/uL [facility] # Bands 0.09 0.00 - 0.80 K/uL [facility] # Atypical Lymphs 0.21 (H) 0.00 - 0.00 K/uL [facility] Total Counted 100 [facility] nRBC (manual) 1 (H) 0 - 0 /100 WBC [facility] WBC Morphology Normal [facility] Giant Platelet Present [facility] Polychromasia 1+ few [facility] Anisocytosis 2+ moderate [facility] Microcytes 2+ moderate [facility] Poikilocytes 1+ few [facility] Elliptocytes 1+ few [facility] Artifact Present [facility] Platelet Conc Adequate [facility] Specimen Blood Narrative Performed At Received comment: User comments: [facility] Slide comments: Performing Organization Address City/State/Zipcode Phone Number [facility] [address] [place] [address] [facility] * CBC with platelet count + automated diff (02/17/2018 3:56 PM CDT) WBC 3.0 (L) 3.5 - 10.5 K/L [facility] RBC 4.50 (L) 4.63 - 6.08 M/L [facility] Hemoglobin 13.2 (L) 13.7 - 17.5 GM/DL [facility] Hematocrit 38.7 (L) 40.1 - 51.0 % [facility] MCV 86.0 79.0 - 92.2 fL [facility] MCH 29.3 25.7 - 32.2 pg [facility] MCHC 34.1 32.3 - 36.5 GM/DL [facility] RDW 13.7 11.6 - 14.4 % [facility] Platelets 174 150 - 450 K/CU MM [facility] MPV 10.0 9.4 - 12.4 fL [facility] nRBC 0 0 - 0 /100 WBC [facility] % Neutros 46 % [facility] % Lymphs 36 % [facility] % Monos 15 % [facility] % Eos 1 % [facility] % Baso 1 % [facility] # Neutros 1.41 (L) 1.78 - 5.38 K/L [facility] # Lymphs 1.09 (L) 1.32 - 3.57 K/L [facility] # Monos 0.45 0.30 - 0.82 K/L [facility] # Eos 0.03 (L) 0.04 - 0.54 K/L [facility] # Baso 0.02 0.01 - 0.08 K/L [facility] Immature 1 0 - 1 % Granulocytes-Relative [facility] Specimen Blood Performing Organization Address City/State/Zipcode Phone Number [facility] [address] [place] [address] [facility] after 12/25/2017 Insurance Payer Benefit Subscriber ID Type Phone Address Plan / Group [employer] - [employer] C[employer] xxxxxxxxx PPO [employer] PPO
[2018-12-26 16:05] VITALS: BP 116/77
[2018-12-26 17:10] VITALS: BP 116/77
[2018-12-26 17:20] LABS: BASOPHILS % 0.5 % (0.0-1.0); EOSINOPHILS # (AUTO) 0.1 (0.0-0.4); EOSINOPHILS % 1.7 % (0.0-6.0); HEMATOCRIT 39.7 % (38.2-49.6); HEMOGLOBIN 14.4 g/dL (14.0-18.0); LYMPHOCYTES # (AUTO) 1.7 (1.0-3.2); LYMPHOCYTES % 40.2 % (18.0-39.1); MEAN CORPUSCULAR HEMOGLOBIN 30.8 pg (28-32); MEAN CORPUSCULAR HGB CONC 36.3 g/dL (31-35); MEAN CORPUSCULAR VOLUME 84.8 fL (81-99); MONOCYTES # (AUTO) 0.5 (0.2-0.8); MONOCYTES % 11.3 % (4.4-11.3); NEUTROPHILS % 46.1 % (38.7-80.0); PLATELET COUNT 165 x10e3/uL (140-360); RED BLOOD COUNT 4.68 x10e6/uL (4.3-5.7); RED CELL DISTRIBUTION WIDTH 14.2 % (11.7-14.4)
--- NOTE | 2018-12-26 17:30 | NUR ---
Notified cardiology/ultrasound department of stat venous doppler. She stated, "that patient is next on the list".
[2018-12-26 17:40] LABS: ALANINE AMINOTRANSFERASE 21 IU/L (0-55); ALBUMIN 3.8 g/dL (3.5-5.0); ALBUMIN/GLOBULIN RATIO 1.2 (0.8-2.0); ALKALINE PHOSPHATASE 53 IU/L (40-150); ANION GAP 11.8 mmol/L (8-16); BLOOD UREA NITROGEN 16 mg/dL (7-26); BUN/CREATININE RATIO 15 (6-25); CALCIUM 9.3 mg/dL (8.4-10.2); CARBON DIOXIDE 24 mmol/L (22-29); CHLORIDE 101 mmol/L (98-107); CREATININE, SERUM 1.05 mg/dL (0.72-1.25); EST GLOMERULAR FILTRATION RATE > 60 ML/MIN (60-); GLUCOSE 113 mg/dL (74-118); POTASSIUM 3.8 mmol/L (3.5-5.1); SODIUM 133 mmol/L (136-145)
--- NOTE | 2018-12-26 18:00 | NUR ---
Pt did not provide detailed information on physical assessment but mentioned that he was previously treated for cellulitis to his left hip states, "You don't have to look at it."
--- NOTE | 2018-12-26 18:56 | NUR ---
collision repair technician reported patient is positive for blood clot in right upper extremity. Paged Dr. Harkins. Awaiting call back
--- NOTE | 2018-12-26 19:20 | NUR ---
Patient received sitting up in bed. AAO x 4. Patient complained of pain to lower right arm (8/10). Respirations even and non-labored. Fall precautions implemented. Patient instructed to call for assistance when needed. Call light within reach.
--- NOTE | 2018-12-26 20:08 | NUR ---
Dr. Jackie Holloway paged regarding patient's complain of pain (03/17). Awaiting call back.
--- NOTE | 2018-12-26 20:37 | NUR ---
Dr. Lucius Harkins paged to give an update regarding Venous Duplex results and CBC , CMP results. Awaiting call back.
[2018-12-26 20:40] VITALS: BP 114/77
--- NOTE | 2018-12-26 20:45 | NUR ---
Dr. Harkins called back with an order for Lovenox 40 mg Q12 and 'Consult' for Dr. Naren Mancilla
[2018-12-26] MEDS ORDERED: SODIUM CHLORIDE 0.9% 250ML 250 ML ONE (20:53)
[2018-12-26] MEDS ORDERED: CEFEPIME HCL 1 GM VIAL IV SCH (21:00)
[2018-12-26] MEDS: VANCOMYCIN 1GM/NS 250 ML 250 ML IV SCH (21:08)
[2018-12-26] MEDS: ENOXAPARIN SOD INJ 40 MG/0.4 ML SYR SC SCH (21:08)
[2018-12-26 21:20] VITALS: BP 114/77
[2018-12-26] MEDS: CEFEPIME 1GM/NS 0.9% 50 ML 50 ML IV SCH (22:30)
--- NOTE | 2018-12-26 22:54 | NUR ---
Dr. Jackie Holloway re-paged for pain medication. Awaiting call back.
[2018-12-27] VITALS (9 sets, daily range): BP systolic 100–131; BP diastolic 61–88
--- NOTE | 2018-12-27 05:52 | NUR ---
Dr. Jackie Holloway paged for pain medication for patient. New order received.
--- NOTE | 2018-12-27 06:13 | NUR ---
Dr. Naren Mancilla notified of "Consult". Reason: Possible DVT. Awaiting call back.
[2018-12-27] MEDS: TRAMADOL HCL 50 MG TAB PO PRN ×3 (06:17→22:17)
--- NOTE | 2018-12-27 07:00 | NUR ---
Walking rounds done. Patient resting comfortably. Shift report given to oncoming nurse.
--- NOTE | 2018-12-27 07:00 | NUR ---
BEDSIDE SHIFT REPORT RECEIVED FROM NIGHT RN. PT DENIES NEEDS AT THIS TIME.
[2018-12-27] MEDS: ENOXAPARIN SOD INJ 40 MG/0.4 ML SYR SC SCH (08:31)
[2018-12-27] MEDS: VANCOMYCIN 1GM/NS 250 ML 250 ML IV SCH ×2 (08:31→21:00)
[2018-12-27] MEDS: CEFEPIME 1GM/NS 0.9% 50 ML 50 ML IV SCH ×2 (09:20→20:54)
--- NOTE | 2018-12-27 15:17 | NUR ---
Nutrition Screen Note RD Recommendation for Physician: -Continue current diet as ordered Plan of Care: RD following, monitoring for tolerance and adequacy Nutrition reason for involvement: Nutrition Risk Trigger MST Primary Diagnose(s): Cellulitis of RUE PMH: hepatitis A, hepatitis B, HIV, I and D of right buttock abscess. Ht: 75in Wt: 208.56lb BMI: 26.1kg/m2 IBW: 196lb RD Assessment: (12/27) Chart reviewed. Labs and meds reviewed. 48yo M, who was admitted for R arm cellulitis. Visited pt in the room. Pt reported good appetite without any GI complains. No complains of chewing or swallowing difficulty. 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 Will continue to monitor and follow. Current Diet: regular diet Malnutrition Evaluation (12/27/2018) The patient does not meet criteria for a specified degree of malnutrition at this time. Will re-evaluate at follow-up as appropriate. Diet Education Needs Assessment: Diet education not indicated. Nutrition Care Level: low Signed: Lynda Martinez, MS, RD, LD
[2018-12-27] MEDS: RIVAROXABAN 15 MG TABLET PO SCH (16:47)
[2018-12-27] MEDS ORDERED: RIVAROXABAN 20 MG TABLET PO SCH (17:00)
--- NOTE | 2018-12-27 18:24 | Consultation ---
DATE OF CONSULTATION: 12/26/2018 REASON FOR CONSULTATION: Cellulitis left upper extremity, concerned about DVT, HIV. Thank you so much for asking me see this patient. HISTORY OF PRESENT ILLNESS: This patient is seen and examined. I saw the patient on December 26. This was dictated the next day. Please refer to my initial note on the chart. The patient was seen fully and evaluated fully on December 26. This is a well known to me he has a history of HIV, but he is not on any treatment. His viral load is very low and his CD4 is high off treatment. I have known this patient for more than six years. He refused any treatment. He keeps telling me that he is doing well. He would not take any anti-retroviral treatment. I had several discussion with this patient. Unfortunately, he was here a month or so ago where he had perirectal abscess. He was given IV antibiotic. This is a recurrent. He had one few years ago, who was discharged to home with IV antibiotic because there was some improvement, but he continued to have induration and I have been following this patient weekly as an outpatient. The induration and the perirectal area was shrinking slowly on IV antibiotic but not totally till about a week ago and there was significant improvement. I recommended to remove the PICC line. He is going to take it out in a day or 2. However, when he came to first take the PICC line, there was erythema and induration, concerned about infection. PICC line was removed. He called the next day that there is redness and swelling in his arm. The patient was advised to come to the hospital. Initially, he did not want to, but after several phone calls, he agreed. The patient is being admitted. PAST MEDICAL HISTORY: HIV, perirectal abscess. PAST SURGICAL HISTORY: I and D. ALLERGIES: NO KNOWN ALLERGIES. SOCIAL HISTORY: There is no smoking, drug abuse, or alcohol abuse. FAMILY HISTORY: Otherwise, noncontributory. REVIEW OF SYSTEMS: At the present time. HEENT: Negative. PULMONARY: Negative. CARDIAC: Negative. CONSTITUTIONAL: There is no fever, no chills. JOINT: There is no erythema, no edema. MUSCULOSKELETAL: The pain in the rectal area has improved except for the redness and swelling on his right upper extremity where the PICC line is. HOME MEDICATIONS: He was given Augmentin, but he did not receive any. As mentioned above, he just finished a course of IV meropenem. LABORATORY DATA: Still pending, but today white count 4.23, hemoglobin 14.4. His sodium 133, potassium 3.8, creatinine 1.05. PHYSICAL EXAMINATION: GENERAL: He is currently alert, oriented, does not seem to be in acute distress. VITAL SIGNS: Stable. Currently afebrile. HEENT: Not icteric. NECK: Supple. CHEST: Clear. HEART: S1 and S2. No S3, S4 or murmur. ABDOMEN: Soft. Bowel sounds present. EXTREMITIES: Right upper extremity, there is erythema, edema on the whole arm. There is no fluctuation. No black discoloration. IMPRESSION: Cellulitis at right upper extremity, concerned about DVT. We will get a Doppler, which was ordered stat. I was contacted 2 hours after admission that was positive. So, the patient was started on Lovenox. Concerned about cellulitis, we will put the patient on vancomycin and cefepime. Obtain blood cultures. HIV stable. We will follow. MD JEANNIE Araya/JULIO /[id number]
--- NOTE | 2018-12-28 01:31 | Consultation ---
DATE OF CONSULTATION: 12/27/2018 CONSULTING PHYSICIAN: Ray Mancilla MD, Hematology-Oncology Service. REASON FOR CONSULTATION: Evaluation and management of patient with deep vein thrombosis. HISTORY OF PRESENT ILLNESS: Mr. Foley is a very pleasant 48-year-old gentleman with known history of HIV and not on any treatment due to very low CD4 count, not on HIV treatment due to noncompliance. Apparently, he has developed perirectal abscess, for which he has been getting treated with IV antibiotics and admitted to the hospital due to left upper extremity cellulitis. Due to perirectal abscess, he has been receiving IV antibiotic and required PICC line placement in the left arm. He noted to have erythema and induration and concerning for infection resulting hospitalized. Here in the hospital, he underwent Doppler of left upper extremity revealing deep vein thrombosis. He was started on anticoagulation with Lovenox and Hematology-Oncology has been consulted to assist with the management. Presently, he is lying comfortably, not in acute distress, breathing normally. Denies any nausea, vomiting, fever, chills, headache, or blurring of vision. He denies any history of thromboembolic disease. His family history is positive for coronary artery disease, but no significant family history of thromboembolic phenomena. PAST MEDICAL HISTORY: 1. HIV. 2. Noncompliance. 3. Perirectal abscess requiring IV antibiotics. 4. DVT as mentioned above. PAST SURGICAL HISTORY: I and D. SOCIAL HISTORY: He denies smoking, drug use, or alcohol use. ALLERGIES: NO KNOWN DRUG ALLERGIES. FAMILY HISTORY: Noncontributory. CURRENT MEDICATIONS: Reviewed as per electronic medical record. REVIEW OF SYSTEMS: A 14-point review of systems negative except as mentioned per history of presenting illness. PHYSICAL EXAMINATION: VITAL SIGNS: Reviewed as per electronic medical record. HEENT: PERRLA. Extraocular movements are intact. Head is atraumatic and normocephalic. NECK: Supple. CVS: S1 and S2 audible. Respiratory: Decreased bilateral air entry. ABDOMEN: Soft. Positive bowel sounds. EXTREMITIES: Negative edema. NEURO: The patient is alert and awake. LABORATORY DATA: White blood cell count of 4.2, hemoglobin 14.4, hematocrit 39.7, and platelets 165. BUN 16 and creatinine 1.0. ASSESSMENT AND PLAN: Mr. Foley is a very pleasant 48-year-old gentleman with known history of human immunodeficiency virus and perirectal abscess, who has been receiving systemic antibiotics via PICC line in the left arm. He has presented and admitted to the hospital due to left arm cellulitis. He is noted to have marked swelling resulting underwent Doppler revealing left upper extremity deep vein thrombosis. Hematology-Oncology has been consulted to assist with the management. I have reviewed the records and discussed at length with the patient about his current disease and importance of anticoagulation. PICC line has been removed. Cause of deep vein thrombosis is probably provoked due to PICC line infiltration. RECOMMENDATION: Would be to switch him to Xarelto loaded dose 15 mg p.o. q.12 hourly for 21 days, then 20 mg p.o. daily. He needs to be on at least three months of anticoagulation. Before stopping anticoagulation, need to have a repeat Doppler. This has been discussed at length with the patient in detail. The patient also has leukopenia, which could be related to the underlying HIV infection, though need to be closely monitored. I have advised him to follow up in outpatient setting. Thank you for the consult. I will continue to be available. Please call with questions. MD BISI Fernando/MODL /[id number]
[2018-12-28 04:00] VITALS: BP 107/71
--- NOTE | 2018-12-28 07:00 | NUR ---
BEDSIDE SHIFT REPORT RECEIVED FROM NIGHT RN. PT DENIES NEEDS AT THIS TIME.
[2018-12-28 08:28] VITALS: BP 111/67
[2018-12-28] MEDS: RIVAROXABAN 15 MG TABLET PO SCH (08:49)
[2018-12-28] MEDS: CEFEPIME 1GM/NS 0.9% 50 ML 50 ML IV SCH (08:49)
[2018-12-28] MEDS: VANCOMYCIN 1GM/NS 250 ML 250 ML IV SCH (08:49)
[2018-12-28] MEDS: TRAMADOL HCL 50 MG TAB PO PRN (08:57)
[2018-12-28 09:00] VITALS: BP 111/67
--- NOTE | 2018-12-28 11:00 | NUR ---
OK WITH DR. GRUBER AND DR. MARROQUIN TO DISCHARGE HOME. FOLLOW UP IN 2 WEEKS.
[2018-12-28 11:57] VITALS: BP 104/69
[2018-12-28] MEDS ORDERED: XARELTO10 MG (12:11)
[2018-12-28] MEDS ORDERED: AUGMENTIN 875-1 EACH PO ×2 (12:12→12:13)
--- NOTE | 2018-12-28 21:26 | Progress Note ---
DATE: 12/28/2018 CHIEF COMPLAINT: The patient with right arm deep vein thrombosis. HISTORY OF PRESENT ILLNESS: Mr. Foley is a very pleasant 48-year-old gentleman with known history of HIV and perirectal abscess who has been receiving systemic antibiotics via PICC line in the right arm. He was admitted due to right arm cellulitis. He was noted to have marked swelling and subsequently underwent Doppler revealing right upper extremity deep vein thrombosis. He has been started on Xarelto, which he has been tolerating well. He has been advised to follow up in outpatient setting in 10 days. Xarelto dose has been 15 mg p.o. q.12h. for 21 days, then 20 mg p.o. daily. He needs to be on at least 3-6 months of anticoagulation. MD BISI Fernando/JULIO /[id number]
== END 2018-12-28 13:06 | disposition home or self-care (01) ==
LOC: MED/SURG2 15:42
DX: T82.898A Other specified complication of vascular prosthetic devices, implants and grafts, initial encounter (principal); I82.622 Acute embolism and thrombosis of deep veins of left upper extremity; K61.1 Rectal abscess; B20 Human immunodeficiency virus [HIV] disease; Z91.14 Patient's other noncompliance with medication regimen; D72.819 Decreased white blood cell count, unspecified
CPT/HCPCS: 36415 ×2; 80053; 80202; 85025; 87040; 93971; G0378 ×3; J0692 ×3; J1650 ×2; J3370 ×3; J7050